=== PATIENT | female | born 1990 | race Caucasian/White ===

== ENCOUNTER 2024-02-23 09:50 | Emergency (ER) | payer OTHER, SELFPAY ==
[2024-02-23 09:54] VITALS: BP 129/96
[2024-02-23 10:10] VITALS: BMI 25.0
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
[2024-02-23 10:40] LABS: Urine Albumin Trace (Neg - Trace); Urine Bilirubin Negative (Negative); Urine Character Clear (Clear); Urine Color Yellow; Urine Glucose Negative (Negative); Urine Ketone Negative (Negative); Urine Leukocyte Trace (Negative); Urine Nitrite Negative (Negative); Urine Occult Blood Negative (Negative); Urine Specific Gravity 1.025 (<1.030); Urine Urobilinogen Negative (Neg - 1+)
[2024-02-23 10:45] LABS: HCG, Urine Qualitative Screen Negative
[2024-02-23 10:55] LABS: Urine Bacteria Few (Negative); Urine Mucus Few; Urine Red Blood Cell 0-2 /HPF (0-2); Urine White Cell 0-2 /HPF (0-5)
[2024-02-23] MEDS: VIBRAMYCIN 100 MG PO (14:05)
== END 2024-02-23 14:27 | disposition home or self-care (01) ==
LOC: EMR 09:50
PROVIDERS: EMERGENCY PHYSICIAN Emergency Medicine
DX: N72 Inflammatory disease of cervix uteri (principal); Z91.42 Personal history of forced labor or sexual exploitation
CPT/HCPCS: 99284; 76856; 81003; 81015; 81025; 87491; 87591